=== PATIENT | male | born 1945 | race Caucasian/White ===

== ENCOUNTER 2016-08-11 06:45 | Day surgery (SDC) | payer OTHER, BC ==
[2016-08-10 11:16] VITALS: BMI 28.1
[2016-08-11] MEDS ORDERED: PROPOFOL 20 ML ONE ×3 (07:56)
[2016-08-11] MEDS ORDERED: LIDOCAINE HCL 2% (20ML MULTI-DOSE VIAL) NR ONE (08:00)
[2016-08-11 09:11] VITALS: TEMP 97.4
[2016-08-11 09:59] VITALS: BP 152/82; PULSE 57
--- NOTE | 2016-08-14 10:43 | PATH ---
Surgical Pathology Report Patient Name: RICKY WALKER [facility] Rec. #: [id number] /Age/Gender: 1945 (Age: 71) / M Account: [id number] Location: U-ENDOSCOPY Taken: 08/11/2016 Received: 08/11/2016 Reported: 08/14/2016 Physicians: Awilda Del Castillo M.D. Specimen(s) Received A: BX 2ND PORTION DUODENUM & DUODENAL BULB B: BX ANTRUM C: PROXIMAL TRANSVERSE COLON POLYP D: BX RIGHT COLON POLYP E: BX SIGMOID POLYP Clinical History Reflux, screening Final Diagnosis A. DUODENUM, SECOND PORTION AND BULB, BIOPSY: DUODENAL MUCOSA WITH CHRONIC INFLAMMATION, VIPUL[place] GLANDS HYPERPLASIA AND FOCAL GASTRIC METAPLASIA CONSISTENT WITH PEPTIC DUODENITIS. NO HISTOLOGIC EVIDENCE OF GLUTEN SENSITIVE ENTEROPATHY (CELIAC DISEASE). B. STOMACH, ANTRUM, BIOPSY: GASTRIC ANTRAL MUCOSA WITH MODERATE CHRONIC GASTRITIS AND REACTIVE GASTROPATHY. IMMUNOSTAIN FOR H. PYLORI IS NEGATIVE FOR ORGANISMS. C. COLON, PROXIMAL TRANSVERSE, POLYP, BIOPSY AND POLYPECTOMY: FRAGMENTS OF TUBULAR ADENOMA. D. COLON, RIGHT, POLYP, BIOPSY: FRAGMENTS OF TUBULAR ADENOMA. E. COLON, SIGMOID, POLYP, BIOPSY: HYPERPLASTIC POLYP. Electronically Signed Tomas Lopez M.D. Gross Description A. Received in formalin, labeled "biopsy second portion of duodenum/bulb" are 3 gruber, irregular portions of soft tissue averaging 0.4 cm in greatest dimension. The specimens are submitted in toto in one cassette. B. Received in formalin, labeled "biopsy antrum" are 5 gruber, irregular portions of soft tissue ranging from 0.2-0.4 cm in greatest dimension. The specimens are submitted in toto in one cassette. C. Received in formalin, labeled "biopsy proximal transverse colon polyp" are 5 gruber, irregular to polypoid portions of soft tissue ranging from 0.2-0.6 cm in greatest dimension. The specimens are submitted in toto in one cassette. D. Received in formalin, labeled "biopsy right colon polyp" are 2 gruber, irregular portions of soft tissue averaging 0.2 cm in greatest dimension. The specimens are submitted in toto in one cassette. E. Received in formalin, labeled "biopsy sigmoid polyp" is a gruber, irregular portion of soft tissue measuring 0.3 cm in greatest dimension. The specimen is submitted in toto in one cassette. 08/11/201608/11/2016
== END 2016-08-11 09:59 | disposition home or self-care (01) ==
LOC: JASU-ENDO 06:45
PROVIDERS: ATTEND Internal Medicine Gastroenterology
PROC: 0DBK8ZX Excision of Ascending Colon, Via Natural or Artificial Opening Endoscopic, Diagnostic (ICD-10-PCS; 2016-08-11)
PROC: 0DBN8ZX Excision of Sigmoid Colon, Via Natural or Artificial Opening Endoscopic, Diagnostic (ICD-10-PCS; 2016-08-11)
PROC: 0DB98ZX Excision of Duodenum, Via Natural or Artificial Opening Endoscopic, Diagnostic (ICD-10-PCS; 2016-08-11)
PROC: 0DB68ZX Excision of Stomach, Via Natural or Artificial Opening Endoscopic, Diagnostic (ICD-10-PCS; 2016-08-11)
PROC: 0DBL8ZX Excision of Transverse Colon, Via Natural or Artificial Opening Endoscopic, Diagnostic (ICD-10-PCS; principal; 2016-08-11 08:00)
DX: Z86.010 Personal history of colon polyps (principal); Z80.0 Family history of malignant neoplasm of digestive organs; D12.5 Benign neoplasm of sigmoid colon; D12.3 Benign neoplasm of transverse colon; D12.2 Benign neoplasm of ascending colon; K64.8 Other hemorrhoids; K31.89 Other diseases of stomach and duodenum
CPT/HCPCS: 88305-TC; 88342-TC

== ENCOUNTER 2021-12-09 04:58 | Day surgery (SDC) | payer OTHER, BC ==
[2021-12-07 14:01] VITALS: BMI 27.6
[2021-12-09 12:30] VITALS: PULSE 58
[2021-12-09 13:00] VITALS: BP 150/77; TEMP 97
== END 2021-12-09 13:05 | disposition home or self-care (01) ==
LOC: JASU-ENDO 04:58
PROVIDERS: ATTEND Internal Medicine Gastroenterology
PROC: 0DB68ZX Excision of Stomach, Via Natural or Artificial Opening Endoscopic, Diagnostic (ICD-10-PCS; 2021-12-09)
PROC: 0DB28ZX Excision of Middle Esophagus, Via Natural or Artificial Opening Endoscopic, Diagnostic (ICD-10-PCS; 2021-12-09)
PROC: 0DB98ZX Excision of Duodenum, Via Natural or Artificial Opening Endoscopic, Diagnostic (ICD-10-PCS; principal; 2021-12-09 12:00)
DX: K29.40 Chronic atrophic gastritis without bleeding (principal); K22.2 Esophageal obstruction; K44.9 Diaphragmatic hernia without obstruction or gangrene; K21.9 Gastro-esophageal reflux disease without esophagitis
CPT/HCPCS: 88305-TC; 88342-TC